=== PATIENT | female | born 1960 | race Caucasian/White ===

== ENCOUNTER 2023-01-02 07:47 | Day surgery (SDC) | payer BC ==
[2022-12-31 11:05] VITALS: BMI 31.6
[2023-01-02 09:19] VITALS: BP 99/55; PULSE 90; RESP 19; TEMP 98
== END 2023-01-02 09:21 | disposition home or self-care (01) ==
LOC: FASU-ENDO 07:47
PROVIDERS: ATTEND Internal Medicine Gastroenterology
PROC: 0DBM8ZX Excision of Descending Colon, Via Natural or Artificial Opening Endoscopic, Diagnostic (ICD-10-PCS; principal; 2023-01-02 08:34)
DX: Z12.11 Encounter for screening for malignant neoplasm of colon (principal); D12.4 Benign neoplasm of descending colon; K57.30 Diverticulosis of large intestine without perforation or abscess without bleeding
CPT/HCPCS: 88305-TC